=== PATIENT | female | born 2005 | race Two or more races ===

== ENCOUNTER 2024-07-08 19:04 | Emergency (ER) | payer OTHER ==
[~2024-07-08] VITALS: Ht 152.4 cm; Wt 62.1 kg
[2024-07-08 19:38] VITALS: BP 108/68; O2SAT 98
[2024-07-08 20:35] LABS: PH,URINE 6.5 (5.0-8.0); URINE APPEARANCE Clear; URINE BILIRRUBIN Negative (NEGATIVE); URINE BLOOD Negative; URINE COLOR Yellow; URINE GLUCOSE Negative (NEGATIVE); URINE KETONE Negative (NEGATIVE); URINE LEUKOCYTE Small; URINE NITRATE Negative; URINE PROTEIN Negative (NEGATIVE); URINE UROBILINOGEN 0.2 E.U./dl
[2024-07-08 20:38] LABS: URINE BACTERIA 806.1 uL (0.0-1933); URINE EPITHELIAL CELLS 5.8 uL (0.0-38.8); URINE RBC 7.7 uL (0.0-20.8); URINE WBC 47.6 uL (0.0-23.2)
[2024-07-08 20:52] LABS: HEMATOCRIT 31.4 % (36.0-45.00); HEMOGLOBIN 10.6 g/dL (12.0-15.00); MEAN CORPUSCULAR HEMOGLOBIN 28.3 pg (27.00-32.0); MEAN CORPUSCULAR HGB CONC 33.6 g/dl (32.0-36.0); PLATELET COUNT 290 K/uL (150-450); RED BLOOD COUNT 3.74 M/uL (4.00-6.00); RED CELL DISTRIBUTION WIDTH 13.1 % (11.5-14.5)
== END 2024-07-08 22:04 | disposition home or self-care (01) ==
LOC: ER 19:05
PROVIDERS: General Practice
DX: O20.8 Other hemorrhage in early pregnancy (principal); Z3A.10 10 weeks gestation of pregnancy

== ENCOUNTER 2025-01-20 13:00 | Inpatient (IN) | payer OTHER ==
[~2025-01-20] VITALS: Ht 154.9 cm; Wt 73.9 kg
[2025-01-24] MEDS ORDERED: PRENATABS RX T1 EACH PO (22:25)
[2025-01-26] VITALS (7 sets, daily range): BP systolic 102–131; BP diastolic 59–81
[2025-01-26] MEDS ORDERED: RINGERS SOLUTION,LACTATED 1,000 ML IV SCH (02:45)
[2025-01-26] MEDS ORDERED: AMPICILLIN SODIUM 2,000 MG VIAL IV ONE (02:45)
[2025-01-26 03:23] LABS: BASO % 0.2 % (0.1-1.2); EOS # 0.05 (0.04-0.54); EOS % 0.5 % (0.7-7.0); HEMATOCRIT 33.6 % (34.1-44.9); HEMOGLOBIN 11.4 g/dL (11.2-15.7); LYMPH # 1.83 (1.18-3.74); LYMPH % 16.6 % (19.3-53.1); MEAN CORPUSCULAR HEMOGLOBIN 27.1 pg (25.6-32.2); MONO % 8.2 % (4.7-12.5); NEUT # 8.16 (1.56-6.13); NEUT % 73.9 % (34.0-71.1); PLATELET COUNT 319 K/uL (163-369); RED BLOOD COUNT 4.21 M/uL (3.93-5.22); RED CELL DISTRIBUTION WIDTH 15.2 % (11.6-14.4); URINE APPEARANCE Turbid; URINE BILIRRUBIN Negative (NEGATIVE); URINE BLOOD Large; URINE COLOR Yellow; URINE GLUCOSE Negative (NEGATIVE); URINE KETONE Negative (NEGATIVE); URINE LEUKOCYTE Moderate; URINE NITRATE Negative; URINE UROBILINOGEN 0.2 E.U./dl
[2025-01-26 03:27] LABS: URINE CAST 3.38 uL (0.0-1.40); URINE EPITHELIAL CELLS 28.8 uL (0.0-38.8)
[2025-01-26 03:42] LABS: INR 0.94; PARTIAL THROMBOPLASTIN TIME 22.7 SECONDS (22.0-34.0); PROTHROMBIN TIME 10.3 SECONDS (9.0-11.5)
[2025-01-26 03:49] LABS: URINE PROTEIN 100 (NEGATIVE)
[2025-01-26 03:50] LABS: URINE MUCUS HEAVY
[2025-01-26 03:59] LABS: ALBUMIN 3.1 gm/dL (3.4-5.0); BILIRUBIN TOTAL 0.19 mg/dL (0.3-1.2); GFR 215.9; GLOBULINA 3.5 G/DL (2.4-3.5); POTASSIUM 4.22 mEq/L (3.5-5.1); TOTAL PROTEIN 6.6 gm/dL (6.4-8.2)
[2025-01-26 04:09] LABS: CREATININE SERUM 0.38 mg/dL (0.55-1.02)
[2025-01-26] MEDS ORDERED: OXYTOCIN 20 UNITS/500ML RL PIGGYBAG IV ONE (06:00)
[2025-01-26] MEDS ORDERED: OXYTOCIN 500 ML IV SCH (06:30)
[2025-01-26] MEDS ORDERED: AMPICILLIN SODIUM 1,000 MG VIAL IV SCH (08:00)
[2025-01-26] MEDS ORDERED: CHLORHEXIDINE GLUCONATE 120 ML BOTTLE TOP ONE ×2 (08:13→09:15)
[2025-01-26] MEDS ORDERED: LIDOCAINE HCL 1% 10ML VIAL ONE (08:13)
[2025-01-26] MEDS ORDERED: OXYTOCIN 20 UNITS/1000ML RL PIGGYBAG IV ONE (08:13)
[2025-01-26] MEDS ORDERED: ERYTHROMYCIN BASE OPHT 1GM EACH TUBE OP ONE ×2 (08:13→09:15)
[2025-01-26] MEDS ORDERED: LIDOCAINE HCL 1% 10ML VIAL PERCUT ONE (09:15)
[2025-01-26] MEDS ORDERED: OXYTOCIN 1,000 ML IV SCH (09:15)
[2025-01-26] MEDS ORDERED: ACETAMINOPHEN 500 MG GEL..CAP PO PRN (10:15)
[2025-01-26] MEDS ORDERED: IBUprofen 800 MG TABLET PO PRN (10:15)
[2025-01-27 01:45] VITALS: BP 115/80
[2025-01-27 02:16] LABS: BASO % 0.2 % (0.1-1.2); EOS # 0.05 (0.04-0.54); EOS % 0.3 % (0.7-7.0); HEMATOCRIT 33.4 % (34.1-44.9); HEMOGLOBIN 11.3 g/dL (11.2-15.7); LYMPH # 2.73 (1.18-3.74); LYMPH % 16.1 % (19.3-53.1); MONO # 0.95 (0.24-0.82); MONO % 5.6 % (4.7-12.5); NEUT # 13.13 (1.56-6.13); NEUT % 77.3 % (34.0-71.1); PLATELET COUNT 339 K/uL (163-369); RED BLOOD COUNT 4.19 M/uL (3.93-5.22); RED CELL DISTRIBUTION WIDTH 15.4 % (11.6-14.4)
[2025-01-27 08:00] VITALS: BP 103/63
[2025-01-27 17:01] VITALS: BP 106/70
[2025-01-28 02:39] VITALS: BP 114/70
[2025-01-28 08:00] VITALS: BP 102/68
== END 2025-01-28 15:16 | disposition home or self-care (01) | DRG 807 ==
LOC: OB/GYN 01-26 02:32 → LDR 01-26 02:32 → OB/GYN 01-26 10:07
PROVIDERS: ADMIT Specialist; ATTEND Specialist
PROC: 10E0XZZ Delivery of Products of Conception, External Approach (ICD-10-PCS; principal; 2025-01-26)
PROC: 4A1HXCZ Monitoring of Products of Conception, Cardiac Rate, External Approach (ICD-10-PCS; 2025-01-26)
DX: O99.824 Streptococcus B carrier state complicating childbirth (principal); Z37.0 Single live birth; Z3A.39 39 weeks gestation of pregnancy

== ENCOUNTER 2025-01-24 22:17 | Outpatient (CLI) | payer OTHER ==
[2025-01-24 21:39] VITALS: BP 118/76
[2025-01-24] MEDS ORDERED: PRENATABS RX T1 EACH PO (22:25)
[2025-01-24 23:35] VITALS: BP 119/75
[2025-01-25 03:31] VITALS: BP 119/70
[2025-01-25 04:31] VITALS: BP 119/70
== END 2025-01-25 03:54 | disposition home or self-care (01) ==
LOC: OBS/DEL 22:17
PROVIDERS: ATTEND Specialist
DX: O47.03 False labor before 37 completed weeks of gestation, third trimester (principal); Z3A.39 39 weeks gestation of pregnancy